=== PATIENT | female | born 1995 | race Caucasian/White ===

== ENCOUNTER 2019-10-07 09:39 | Emergency (ER) | payer BC, SELFPAY ==
[2019-06-13 08:18] VITALS: BMI 25.7
[2019-10-07 09:40] VITALS: BP 128/73; PULSE 63; RESP 17; TEMP 36.6; O2SAT 100; BMI 24.5
--- NOTE | 2019-10-07 10:03 | CT_ITS ---
STUDY: CT ABDOMEN AND PELVIS WITH CONTRAST REASON FOR EXAM: Female, 24 years old. N/V/D, UPPER ABD PAIN X 7 DAYS RADIATION DOSAGE (If Supplied By Facility): CTDIvol = ( 9.97 ) mGy, DLP = ( 383.35 ) mGycm TECHNIQUE: Transaxial images were obtained from the dome of the diaphragm to the symphysis pubis without oral contrast. IV 100ML ISOVUE 300 was administered. Sagittal and coronal images were reconstructed. Individualized dose optimization techniques were used for this CT. COMPARISON: None. FINDINGS: The visualized lung bases are unremarkable. The visualized portions of the heart are within normal limits. Findings suggestive of periportal edema of the liver. Correlation with liver function tests is recommended. Possible hepatitis. Normal gallbladder and extrahepatic biliary system. Normal spleen. Normal pancreas. Normal bilateral adrenal glands. Normal right kidney. Normal left kidney. There is a small hiatal hernia. Normal small intestine. Normal colon. The appendix is visualized and appears normal. Normal abdominal aorta. Normal inferior vena cava. Normal retroperitoneum. Normal urinary bladder. Small follicles are seen in the right ovary. Normal abdominal wall. Normal osseous structures. CT/Abdomen/Pelvis W IV Cont ONLY IMPRESSION: Findings suggestive of periportal edema of the liver. Correlation with liver function tests recommended. Electronically Signed: Curtis Oh, at 11:15 EDT , Service support ,
[2019-10-07] MEDS: 0.9% Normal Saline 1,000 ML 1000 ML IV (10:08)
[2019-10-07] MEDS: Morphine 4 MG/ML Syringe IV (10:08)
[2019-10-07] MEDS: Ondansetron 4 MG/2 ML Vial IV (10:09)
[2019-10-07 10:12] LABS: Absolute Neutrophil Count 4.9 X10^3/uL (2.0-7.7); Basophil# 0.01 X10^3/uL; Basophil% 0.2 % (0-1); Hematocrit 44.4 % (37-47); Lymphocyte % 17.8 % (19-41); Mean Corp Hgb Conc 33.8 g/dL (32-36); Mean Corpuscular Hgb 31.2 pg (27.0-32.0); Mean Corpuscular Volume 92.3 fL (81-99); Mean Platelet Vol. 10.8 fl (6.2-12.0); Monocyte# 0.21 X10^3/uL; Monocyte% 3.4 % (0-10); NRBC Flagged by Analyzer 0 % (0-5); Neutrophil # 4.85 X10^3/uL (2.7-7.7); Neutrophil % 78.3 % (47-70); Platelet Count 216 K/mm3 (150-450); RBC Distribution Width SD 40.2 fl (35.1-43.9); Red Blood Count 4.81 M/mm3 (4.2-5.4); White Blood Count 6.2 K/mm3 (4.4-11.0)
[2019-10-07 10:28] LABS: Internal QC Validated? YES +Cl - CLEAR BKGD; Pregnancy, Serum, hCG Quali. NEGATIVE Negative
[2019-10-07 10:29] LABS: ALB/GLOB Ratio 1.1 RATIO (0.9-2.4); AST(SGOT) 22 U/L (15-37); Alanine Aminotransfer ALT/SGPT 32 U/L (13-56); Albumin, Serum 4.3 g/dL (3.2-5.0); Alkaline Phosphatase 61 U/L (45-117); Anion Gap 9 (5-15); BUN 18 mg/dL (7-18); BUN/Creat Ratio 15.1 RATIO (10-20); Calcium,Total 9.7 mg/dL (8.5-10.1); Chloride 107 mmol/L (98-107); Creatinine, Serum 1.19 mg/dL (0.55-1.02); EST Glomerular Filtration Rate 60 mL/min (>60); Est Glom Filt Rate - Afr Amer 72 mL/min (>60); Estimated Creatinine Clearance 60.82 ml/min; Globulin 3.8 g/dL (2.2-4.2); Glucose 102 mg/dL (74-106); Lipase 74 U/L (73-393); Protein, Total 8.1 g/dL (6.4-8.2); Sodium Level 141 mmol/L (136-145)
--- NOTE | 2019-10-07 10:33 | ED.DCSUM_ITS ---
- ER Visit Summary Date of Service: 10/07/19 Chief Complaint: Abdominal pain History of Present Illness: The patient is a 24 F presenting with abdominal pain. Patient states this started on Saturday. She has epigastric abdominal pain. She has had vomiting today. Denies diarrhea. Denies blood in her stool or emesis. Denies fever. She tried Prilosec at home with no improvement. Denies other complaints. Physical Examination: Vitals are stable. Patient is afebrile. Alert no acute distress. HEENT exam is unremarkable. Neck is supple. Lungs are clear and equal bilaterally. Heart is regular rate and rhythm. Abdomen is soft epigastric tenderness with no guarding or rebound Extremities are unremarkable. Skin is warm and dry. Remainder of exam is unremarkable. Emergency Department Course and Treatment: Patient was given morphine, Zofran IV. CBC, chemistries unremarkable other than potassium 3.0, creatinine 1.19. Total bili 1.1. Lipase normal. hCG negative. She was given potassium oral replacement. CT abdomen pelvis shows findings suggestive of periportal edema of the liver. Correlation with liver function tests recommended. Liver function normal other than total bili 1.1. Hepatitis panel was sent. Patient was given a GI cocktail with improvement of her symptoms. She was given prescription for Pepcid and Zofran. Advised to follow-up with her primary care physician. Advised return to ED for worsening complaints. Disposition: Discharge home Impression: Abdominal pain This note was generated with [employer] dictation software. It may contain incorrect words, spelling, and punctuation that were not noted in review of the chart prior to signing ED Disposition - Plan for ED Patient: Instructions: ED Abdominal Pain Unkn Cause Fem Prescriptions: Famotidine [Pepcid] 20 mg PO BID #28 tab Prescription Printed Ondansetron [Zofran Odt] 4 mg PO Q8H PRN PRN #10 tab PRN Reason: Nausea Prescription Printed Referrals: Nino Feliz MD [NON-STAFF] - [facility] Doctor,Out of [Primary Care Provider] -
[2019-10-07] MEDS: Mag Hydrox/Al Hydrox/Simeth 30 ML UDC PO (11:47)
[2019-10-07 11:48] VITALS: BP 129/92; PULSE 51; RESP 16; O2SAT 100
--- NOTE | 2019-10-07 12:05 | DCINST.ED_ITS ---
ED Disposition - Plan for ED Patient: Instructions: ED Abdominal Pain Unkn Cause Fem Prescriptions: Famotidine [Pepcid] 20 mg PO BID #28 tablet Ondansetron [Zofran Odt] 4 mg PO Q8H PRN PRN #10 tablet PRN Reason: Nausea Referrals: [facility] Doctor,Out of [Primary Care Provider] - Nino Feliz MD [NON-STAFF] -
[2019-10-07 12:28] VITALS: BP 132/66; PULSE 61; RESP 16; O2SAT 99
[2019-10-08 05:06] LABS: HEPATITIS B SURFACE AG Negative (Negative); Hepatitis A IgM Antibody Negative (Negative); Hepatitis B Core AB IgM Negative (Negative)
[2019-10-08 11:27] LABS: Hep C Antibodies <0.1 s/co ratio (0.0-0.9)
== END 2019-10-07 12:30 | disposition home or self-care (01) ==
LOC: ED 12:22
PROVIDERS: Emergency Provider Emergency Medicine
DX: R10.13 Epigastric pain (principal); R11.2 Nausea with vomiting, unspecified
CPT/HCPCS: 74177; 80053; 80074; 83690; 84703; 85025; 96361; 96374; 96375; 99284; J7030; Q9967; A4216; J2405

== ENCOUNTER 2021-07-04 09:22 | Outpatient (CLI) | payer OTHER, SELFPAY ==
[2021-07-03 12:03] LABS: Amphetamine Urine VISTA NEGATIVE (<1000 ng/mL); Barbiturate Urine VISTA NEGATIVE (< 200 ng/mL); Benzodiazepine Urine VISTA NEGATIVE (< 200 ng/mL); Cocaine Urine VISTA NEGATIVE (< 300 ng/mL); Ecstacy Urine VISTA NEGATIVE (< 500 ng/mL); Methadone Urine VISTA NEGATIVE (< 300 ng/mL); PCP Urine VISTA NEGATIVE (< 25 ng/mL); THC Urine VISTA POSITIVE (< 50 ng/mL)
[2021-07-03 14:18] LABS: Vista UDS pH Range 8
[2021-07-04 22:07] LABS: Chlamydia By Nucleic Acid AMP Negative (Negative)
[2021-07-05 10:21] LABS: Gonococcus By Nucleic Acid AMP Negative (Negative)
[2021-07-07 17:15] LABS: HPV Reflexed? NOT INDICATED
== END 2021-07-04 23:59 | disposition home or self-care (01) ==
LOC: LABSPEC 09:24
PROVIDERS: PCP Family Medicine; Referring Provider Obstetrics & Gynecology; Visit Provider Obstetrics & Gynecology
DX: Z34.90 Encounter for supervision of normal pregnancy, unspecified, unspecified trimester (principal)
CPT/HCPCS: 80307; 87086; 87088; 87491; 87591; 88175; G0145

== ENCOUNTER 2021-08-04 14:14 | Outpatient (CLI) | payer OTHER, SELFPAY ==
[2021-08-04 15:22] LABS: Absolute Lymphocyte Count 3.32 X10^3/uL (0.83-4.51); Absolute Neutrophil Count 5.3 X10^3/uL (2.0-7.7); Basophil# 0.02 X10^3/uL; Basophil% 0.2 % (0-1); Eosinophil# 0.17 X10^3/uL; Eosinophils% 1.8 % (0-5); Hematocrit 40.9 % (37-47); Hemoglobin 14.9 g/dL (12.0-15.0); Lymphocyte # 3.32 X10^3/ul (0.83-4.51); Lymphocyte % 35.5 % (19-41); Mean Corp Hgb Conc 36.4 g/dL (32-36); Mean Corpuscular Hgb 32.3 pg (27.0-32.0); Mean Corpuscular Volume 88.5 fL (81-99); Mean Platelet Vol. 10.7 fl (6.2-12.0); Monocyte# 0.56 X10^3/uL; NRBC Flagged by Analyzer 0 % (0-5); Neutrophil # 5.25 X10^3/uL (2.7-7.7); Neutrophil % 56.3 % (47-70); Platelet Count 207 K/mm3 (150-450); RBC Distribution Width CV 12.1 % (11.6-14.6); Red Blood Count 4.62 M/mm3 (4.2-5.4); White Blood Count 9.3 K/mm3 (4.4-11.0)
[2021-08-07 09:30] LABS: HIV - WCH Non-Reactive (Nonreactive); Hepatitis B Surface Antigen Non-Reactive (Nonreactive); Hepatitis C Antibody Non-Reactive (Nonreactive); Rubella IgG Reactive (Nonreactive); Syphilis Antibodies Non-reactive
== END 2021-08-04 23:59 | disposition home or self-care (01) ==
LOC: LAB 14:16
PROVIDERS: PCP Family Medicine; Visit Provider Obstetrics & Gynecology
DX: Z34.90 Encounter for supervision of normal pregnancy, unspecified, unspecified trimester (principal)
CPT/HCPCS: 36415; 85025; 86703; 86762; 86780; 86803; 86850; 86900; 86901; 87340

== ENCOUNTER → 2021-08-30 | Outpatient (CLI) | payer OTHER, SELFPAY ==
[2021-08-30 17:33] LABS: Amphetamine Urine VISTA NEGATIVE (<1000 ng/mL); Barbiturate Urine VISTA NEGATIVE (< 200 ng/mL); Benzodiazepine Urine VISTA NEGATIVE (< 200 ng/mL); Cocaine Urine VISTA NEGATIVE (< 300 ng/mL); Ecstacy Urine VISTA NEGATIVE (< 500 ng/mL); Methadone Urine VISTA NEGATIVE (< 300 ng/mL); PCP Urine VISTA NEGATIVE (< 25 ng/mL); THC Urine VISTA POSITIVE (< 50 ng/mL); Vista UDS pH Range 6
== END | disposition home or self-care (01) ==
PROVIDERS: PCP Family Medicine; Referring Provider Nurse Practitioner Women's Health; Visit Provider Nurse Practitioner Women's Health
DX: O99.321 Drug use complicating pregnancy, first trimester (principal); F12.90 Cannabis use, unspecified, uncomplicated; Z3A.10 10 weeks gestation of pregnancy
CPT/HCPCS: 80307

== ENCOUNTER → 2021-12-01 | Outpatient (CLI) | payer OTHER, SELFPAY ==
[2021-12-01 17:41] LABS: Glucose Challenge Gest 1H 50g 99 mg/dL (70-140)
[2021-12-01 17:55] LABS: Absolute Lymphocyte Count 3.27 X10^3/uL (0.83-4.51); Basophil# 0.04 X10^3/uL; Basophil% 0.3 % (0-1); Eosinophil# 0.28 X10^3/uL; Eosinophils% 2.1 % (0-5); Hematocrit 39.2 % (37-47); Lymphocyte # 3.27 X10^3/ul (0.83-4.51); Lymphocyte % 24.5 % (19-41); Mean Corp Hgb Conc 33.2 g/dL (32-36); Mean Corpuscular Hgb 32.3 pg (27.0-32.0); Mean Corpuscular Volume 97.3 fL (81-99); Mean Platelet Vol. 10.4 fl (6.2-12.0); Monocyte# 0.64 X10^3/uL; Monocyte% 4.8 % (0-10); NRBC Flagged by Analyzer 0 % (0-5); Neutrophil # 8.95 X10^3/uL (2.7-7.7); Platelet Count 233 K/mm3 (150-450); RBC Distribution Width CV 12.1 % (11.6-14.6); Red Blood Count 4.03 M/mm3 (4.2-5.4); White Blood Count 13.4 K/mm3 (4.4-11.0)
== END | disposition home or self-care (01) ==
LOC: LAB 15:47
PROVIDERS: Obstetrics & Gynecology; PCP Family Medicine; Visit Provider Obstetrics & Gynecology
DX: Z34.90 Encounter for supervision of normal pregnancy, unspecified, unspecified trimester (principal)
CPT/HCPCS: 36415; 82950; 85025

== ENCOUNTER → 2021-12-29 | Outpatient (CLI) | payer OTHER, SELFPAY ==
--- NOTE | 2021-12-29 13:17 | US_ITS ---
STUDY: SECOND AND THIRD TRIMESTER OBSTETRICAL ULTRASOUND REASON FOR EXAM: Female, 26 years old GROWTH LMP: 05/21/2021. TECHNIQUE: Transabdominal TECHNICAL QUALITY: Adequate. PRIOR ULTRASOUND: None. FINDINGS: There is a single intrauterine fetus. The fetus is in a cephalic presentation. There is demonstrated cardiac activity with a heart rate of 123 bpm. There is a normal amniotic fluid volume. The largest amniotic fluid pocket measures 4.3 cm. The amniotic fluid index (DEBI) is 11.8 cm. The placenta is anterior in location and is not low lying. There are Grade 1 placental changes. The cervix measures 3.2 cm in length. The adnexal regions are not visualized. BIOMETRY: BPD: 8.15 cm: 32 weeks, 5 days HC: 29.2 cm: 32 weeks, 2 days AC: 27.8 cm: 31 weeks, 6 days FL: 5.9 cm: 30 weeks, 4 days CI: 81% FL/BPD: 72% FL/HC: FL/AC: 21% HC/AC: 1.05 age by current US: 31 weeks, 5 days. EDMUNDO by current US: 02/25/2022. Estimated weight: 1828 grams, +/- 274 grams, 39 %. Age by LMP: 31 weeks, 5 days. EDMUNDO by LMP: 02/25/2022. US/OB Limited With Biometrics IMPRESSION: Single live uterine gestation with a mean gestational age of 31 weeks and 5 days. Electronically Signed: Curtis Oh MD at 14:07 EDT ,
== END | disposition home or self-care (01) ==
LOC: OPUS 13:16
PROVIDERS: PCP Family Medicine; Referring Provider Obstetrics & Gynecology; Visit Provider Obstetrics & Gynecology
DX: O98.52 Other viral diseases complicating childbirth (principal); U07.1 COVID-19
CPT/HCPCS: 76816

== ENCOUNTER → 2022-01-26 | Outpatient (CLI) | payer OTHER, SELFPAY ==
--- NOTE | 2022-01-26 14:18 | US_ITS ---
STUDY: SECOND AND THIRD TRIMESTER OBSTETRICAL ULTRASOUND REASON FOR EXAM: Female, 26 years old growth LMP: 05/21/2021. TECHNIQUE: Transabdominal TECHNICAL QUALITY: Adequate. PRIOR ULTRASOUND: Comparison is made with prior study 12/29/2021. FINDINGS: There is a single intrauterine fetus. The fetus is in a cephalic presentation. There is demonstrated cardiac activity with a heart rate of 131 bpm. There is a normal amniotic fluid volume. The largest amniotic fluid pocket measures 5.3 cm. The amniotic fluid index (DEBI) is 11.7 cm. The placenta is anterior in location and is not low lying. There are Grade 1 placental changes. The cervix measures 3.6 cm in length. The adnexal regions are not visualized. BIOMETRY: BPD: 8.82 cm: 35 weeks, 5 days HC: 32.03 cm: 36 weeks, 1 days AC: 32.77 cm: 36 weeks, 5 days FL: 6.7 cm: 30 weeks, 3 days CI: 80% FL/BPD: FL/HC: FL/AC: 20% HC/AC: 0.98 age by current US: 35 weeks, 4 days. EDMUNDO by current US: 02/26/2022. Estimated weight: 2834 grams, +/- 425 grams, 59 %. age by prior US: 35 weeks, 5 days. EDMUNDO by prior US: 02/25/2022. Age by LMP: 35 weeks, 4 days. EDMUNDO by LMP: 02/26/2022. US/OB Limited With Biometrics IMPRESSION: Single live uterine gestation with mean gestational age of 35 weeks and 5 days. Electronically Signed: Curtis Oh MD at 15:30 EDT ,
== END | disposition home or self-care (01) ==
LOC: OPUS 14:17
PROVIDERS: PCP Family Medicine; Visit Provider Obstetrics & Gynecology
DX: O98.52 Other viral diseases complicating childbirth (principal); U07.1 COVID-19; Z3A.00 Weeks of gestation of pregnancy not specified
CPT/HCPCS: 76816

== ENCOUNTER → 2022-02-02 | Outpatient (CLI) | payer OTHER, SELFPAY | END | disposition home or self-care (01) | LOC: LABSPEC 16:58 | PROVIDERS: PCP Family Medicine; Visit Provider Obstetrics & Gynecology | DX: Z34.90 Encounter for supervision of normal pregnancy, unspecified, unspecified trimester (principal) | CPT/HCPCS: 87081 ==

== ENCOUNTER → 2022-02-08 | Outpatient (CLI) | payer OTHER, SELFPAY ==
[2022-02-08 14:41] LABS: Protein, Urine (Random) 18.1 mg/dL (<11.9); Protein:Creat Ratio 153 mg/g CRE (0-200)
== END | disposition home or self-care (01) ==
LOC: LABSPEC 13:42
PROVIDERS: PCP Family Medicine; Visit Provider Obstetrics & Gynecology
DX: O12.00 Gestational edema, unspecified trimester (principal)
CPT/HCPCS: 82570; 84156

== ENCOUNTER 2022-02-12 10:40 | Inpatient (IN) | payer OTHER, SELFPAY ==
[2022-02-12] VITALS (32 sets, daily range): BP systolic 112–145; BP diastolic 58–88; PULSE 62–210; TEMP 36.2–37.6; O2SAT 84–100; BMI 39.9
[2022-02-12] MEDS: Lactated Ringers 1,000 ML 50 ML IV (10:15)
[2022-02-12 10:37] LABS: ROM Internal Control Test YES-OK TO RESULT pt. (Internal QC)
[2022-02-12 10:38] LABS: ROM Patient Test POSITIVE (Negative)
[2022-02-12 12:23] LABS: Absolute Lymphocyte Count 3.63 X10^3/uL (0.83-4.51); Absolute Neutrophil Count 9.7 X10^3/uL (2.0-7.7); Basophil# 0.03 X10^3/uL; Basophil% 0.2 % (0-1); Eosinophil# 0.06 X10^3/uL; Eosinophils% 0.4 % (0-5); Lymphocyte # 3.63 X10^3/ul (0.83-4.51); Lymphocyte % 25.2 % (19-41); Mean Corp Hgb Conc 32.4 g/dL (32-36); Mean Corpuscular Hgb 30.2 pg (27.0-32.0); Mean Corpuscular Volume 93.2 fL (81-99); Mean Platelet Vol. 11.6 fl (6.2-12.0); Monocyte# 0.88 X10^3/uL; Monocyte% 6.1 % (0-10); NRBC Flagged by Analyzer 0 % (0-5); Neutrophil # 9.65 X10^3/uL (2.7-7.7); Neutrophil % 66.9 % (47-70); POSITIVE COUNT YES; Platelet Count 189 K/mm3 (150-450); RBC Distribution Width CV 11.9 % (11.6-14.6); Red Blood Count 3.97 M/mm3 (4.2-5.4); White Blood Count 14.4 K/mm3 (4.4-11.0)
[2022-02-12 13:16] LABS: Differential Indicated SCAN CRITERIA MET
[2022-02-12 13:17] LABS: Platelet Estimate ADEQUATE (ADEQ); Red Cell Morphology NORM C+C NORMAL (NORM C&C)
[2022-02-12] MEDS: Oxytocin 30 units/NS 500 ml 30 UNITS/500 ML IV.SOLN IV (13:47)
[2022-02-12] MEDS: LACTATED RINGERS 500 ML 999 ML IV ×2 (15:40→23:29)
[2022-02-12] MEDS: fentaNYL-bupivacaine (epidural) 100 ML BAG EPIDURAL ×2 (16:09→19:55)
[2022-02-12] MEDS: Mag Hydrox/Al Hydrox/Simeth 30 ML UDC PO ×2 (17:00→22:34)
[2022-02-12] MEDS: Lactated Ringers 1,000 ML 200 ML IV (19:54)
[2022-02-12] MEDS: Ondansetron 4 MG/2 ML Vial IV (20:20)
[2022-02-12] MEDS: 0.9% Saline Lock 10 ML Syringe IV (20:20)
--- NOTE | 2022-02-12 21:27 | HP.PCM.OB_ITS ---
HPI - General General Date of Admission: 02/12/22 HPI Narrative IZZY JACOBSON, is a 26 F who presents IAL with ctx and SROM clear fluid, 3 cm dilated no vb good fm Maternal Data Information EDMUNDO Calculator Estimated Delivery Date Method Current WG Current Estimate 02/25/22 Ultrasound #1 38w 1d Other Estimates 02/11/22 LMP (Certain) 40w 1d PFSH PFSH Medical History Chronic neck and back pain Depression Family history of breast cancer Headache History of seizures Marijuana use Home Medications prenat.vits,levar,igu-rgps-roxdl 1 tab PO DAILY 12/29/21 [History Last Taken Unknown] acetaminophen 80 mg chewable tablet 81 mg PO DAILY 02/08/22 [History Last Taken Unknown] Allergy/AdvReac Type Severity Reaction Status Date / Time No Known Allergies Allergy Verified 02/02/22 16:07 Family History Mother Breast cancer, Onset Age: 45 Grandmother Breast cancer Surgical History Robinson teeth extracted Social History Smoking Status: Never smoker alcohol intake: never caffeine: Yes seatbelt use: always do you feel safe at home: Yes additional social history: Keypr [place] Duffy History 1 Elective abortions Hx Para 0 Spontaneous abortions Hx # Term Pregnancies Ectopic pregnancies Hx # Pregnancies Multiple births # of living children Visit Details Expected Delivery Route/Plan Labor Preferences- CB/BF classes: discussed labor support person: Chemo labor intervention preferences: [] pain management options preferred: [] cut cord/dad catch: [] : [] PP control planned: [] discussed possible routes of delivery and associated risks: [] special requests: [] Plans Covid status: vaccinated Flu vaccine: encouraged Tdap vaccine: given Rhogam: na LARC form signed: [] movement and labor precautions reviewed. Problem list reviewed and updated with the most current plan of care details and appropriate orders placed. Relevant counseling for the gestational age provided. Continue routine care and follow up unless otherwise noted in visit notes/problem list details OB Flowsheet Initial Weight: 164 lb Date -?-?-?-?-?-?-?-?-?-?-?-?- EGA Weight BP Urine Prot -?-?-?-?-?-?-?-?-?-?-?-?- Glucose FHR FuHt Pres Dilation -?-?-?-?-?-?-?-?-?-?-?-?- Effaced St Visit Note 07/03/21 -?-?-?-?-?-?-?-?-?-?-?-?- 6w 1d 164 lb (+0 oz) 102/70 -?-?-?-?-?-?-?-?-?-?-?-?- 120 -?-?-?-?-?-?-?-?-?-?-?-?- SM- CRL 6mm NOT cons with LMP 08/04/21 -?-?-?-?-?-?-?-?-?-?-?-?- 10w 5d 156 lb 4 oz (-7 lb 12 oz) 110/70 Negative -?-?-?-?-?-?-?-?-?-?-?-?- Negative 160 -?-?-?-?-?-?-?-?-?-?-?-?- Sm-no vb some cr amping 08/30/21 -?-?-?-?-?-?-?-?-?-?-?-?- 14w 3d 160 lb 4 oz (-3 lb 12 oz) 124/72 Negative -?-?-?-?-?-?-?-?-?-?-?-?- Negative 157 -?-?-?-?-?-?-?-?-?-?-?-?- MH-No VB, LOF. N ormal PNL. No concerns 09/27/21 -?-?-?-?-?-?-?-?-?-?-?-?- 18w 3d 162 lb (-2 lb) 110/70 Negative -?-?-?-?-?-?-?-?-?-?-?-?- Negative 154 -?-?-?-?-?-?-?-?-?-?-?-?- JV- discussion a bout repeat labs today. no other concerns. plan for anatomy scan on with mfm . 10/25/21 -?-?-?-?-?-?-?-?-?-?-?-?- 22w 3d 170 lb 2 oz (+6 lb 2 oz) 120/80 Negative -?-?-?-?-?-?-?-?-?-?-?-?- Negative 147 -?-?-?-?-?-?-?-?-?-?-?-?- JV-normal anatom y reviewed. no complaints today. glucola given 12/01/21 -?-?-?-?-?-?-?-?-?-?-?-?- 27w 5d 186 lb (+22 lb) 114/77 Negative -?-?-?-?-?-?-?-?-?-?-?-?- Negative 140 28 -?-?-?-?-?-?-?-?-?-?-?-?- Sm- no vb lof go od fm no regualr ctx . discussed weight gain 12/13/21 -?-?-?-?-?-?-?-?-?-?-?-?- 29w 3d 190 lb (+26 lb) 116/73 Negative -?-?-?-?-?-?-?-?-?-?-?-?- Negative 145 30 -?-?-?-?-?-?-?-?-?-?-?-?- JV- pt has a yea st infectio that is moderate to severe. she is doing otc monistat. edematous is severe enough that the speculum will not easily insert with lubrication and the discharge is copious. starting diflucan and encourage continuation of monistat with internal and external application. 12/29/21 -?-?-?-?-?-?-?-?-?-?-?-?- 31w 5d 196 lb (+32 lb) 136/78 Negative -?-?-?-?-?-?-?-?-?-?-?-?- Negative 140 32 -?-?-?-?-?--?-?-?-?-?-?-?- SM- no vb lof go od fm no rergular ctx 01/10/22 -?-?-?-?-?-?-?-?-?-?-?-?- 33w 3d 199 lb 6 oz (+35 lb 6 oz) 132/78 Negative -?-?-?-?-?-?-?-?-?-?-?-?- Negative 134 33 -?-?-?-?-?-?-?-?-?-?-?-?- JV- no lof ,vagi nal bleeding, or dec fm. no complaints today 01/26/22 -?-?-?-?-?-?-?-?-?-?-?-?- 35w 5d 199 lb (+35 lb) 120/80 -?-?-?-?-?-?-?-?-?-?-?-?- 135 36 -?-?-?-?-?-?-?-?-?-?-?-?- SM-no vb lof goo d fm irregular ctx 02/02/22 -?-?-?-?-?-?-?-?-?-?-?-?- 36w 5d 128/82 Negative -?-?-?-?-?-?-?-?-?-?-?-?- Negative 145 36 Cephalic 0 -?-?-?-?-?-?-?-?-?-?-?-?- JV- no lof, vagi nal bleeding or dec fm. gbs collected .labor precautions discussed. 02/09/22 -?-?-?-?-?-?-?-?-?-?-?-?- 37w 5d 217 lb (+53 lb) 132/83 -?-?-?-?-?-?-?-?-?-?-?-?- 135 38 1.5 -?-?-?-?-?-?-?-?-?-?-?-?- 50 -2 SM- no vb lof good fm no regular ctx 02/12/22 -?-?-?-?-?-?-?-?-?-?-?-?- 38w 1d 218 lb 6 oz (+54 lb 6 oz) 145/84 137/81 139/79 134/75 122/66 118/59 137/88 135/81 139/81 129/75 122/58 119/59 126/63 130/58 134/63 126/62 116/67 119/69 122/67 120/62 -?-?-?-?-?-?-?-?-?-?-?-?- -?-?-?-?-?-?-?-?-?-?-?-?- NST FHR Rate Baby A Baseline: 130 Variability:: Moderate Accelerations:: 15 x 15 Decelerations:: None NST Reactive:: Yes FHR Category:: Category I Uterine Activity:: q3-5 ROS Constitutional Constitutional: Reports systems reviewed and no addt'l complaints, except as documented ENT HEENT: Reports systems reviewed and no addt'l complaints, except as documented Cardiovascular Cardiovascular: Reports systems reviewed and no addt'l complaints, except as documented Respiratory/Chest Respiratory/Chest: Reports systems reviewed and no addt'l complaints, except as documented Gastrointestinal Gastrointestinal: Reports systems reviewed and no addt'l complaints, except as documented and nausea; Denies abdominal pain Genitourinary Genitourinary: Reports systems reviewed and no addt'l complaints, except as documented, contractions Details: present and frequency (regular ) and movement Details: present Musculoskeletal Musculoskeletal: Reports systems reviewed and no addt'l complaints, except as documented Integumentary Integumentary: Reports as per HPI Neurologic Neurologic: Reports systems reviewed and no addt'l complaints, except as documented Endocrine Endocrinology: Reports systems reviewed and no addt'l complaints, except as documented Vital Signs Vital Signs Vital Signs: 02/12/22 09:58 02/12/22 09:58 02/12/22 09:59 Temperature 99.7 F H Temperature Source Pulse Rate 80 Blood Pressure BP Systolic BP Diastolic Pulse Ox 100 02/12/22 10:01 02/12/22 10:01 02/12/22 10:15 Temperature Temperature Source Pulse Rate 91 Blood Pressure 145/84 H 137/81 H BP Systolic 145 137 BP Diastolic 84 81 Pulse Ox 02/12/22 10:15 02/12/22 10:25 02/12/22 10:25 Temperature Temperature Source Pulse Rate 78 90 Blood Pressure 139/79 H BP Systolic 139 BP Diastolic 79 Pulse Ox 02/12/22 12:56 02/12/22 12:56 02/12/22 12:56 Temperature 98.1 F Temperature Source Pulse Rate 73 Blood Pressure 134/75 H BP Systolic 134 BP Diastolic 75 Pulse Ox 02/12/22 12:56 02/12/22 12:56 02/12/22 13:55 Temperature 98.1 F Temperature Source Temporal Pulse Rate Blood Pressure 122/66 H BP Systolic 122 BP Diastolic 66 Pulse Ox 02/12/22 13:55 02/12/22 14:20 02/12/22 14:20 Temperature Temperature Source Pulse Rate 68 80 Blood Pressure 118/59 L BP Systolic 118 BP Diastolic 59 Pulse Ox 02/12/22 15:50 02/12/22 15:50 02/12/22 15:50 Temperature Temperature Source Pulse Rate 161 H Blood Pressure 137/88 H BP Systolic 137 BP Diastolic 88 Pulse Ox 92 02/12/22 15:55 02/12/22 15:55 02/12/22 15:55 Temperature Temperature Source Pulse Rate 111 H Blood Pressure 135/81 H BP Systolic 135 BP Diastolic 81 Pulse Ox 100 02/12/22 15:58 02/12/22 15:58 02/12/22 16:00 Temperature Temperature Source Pulse Rate 92 Blood Pressure 139/81 H 129/75 H BP Systolic 139 129 BP Diastolic 81 75 Pulse Ox 02/12/22 16:00 02/12/22 16:00 02/12/22 16:00 Temperature Temperature Source Pulse Rate 91 89 Blood Pressure BP Systolic BP Diastolic Pulse Ox 87 02/12/22 16:01 02/12/22 16:01 02/12/22 16:05 Temperature Temperature Source Pulse Rate 85 Blood Pressure 122/58 H BP Systolic 122 BP Diastolic 58 Pulse Ox 92 02/12/22 16:05 02/12/22 16:05 02/12/22 16:10 Temperature Temperature Source Pulse Rate 79 Blood Pressure 119/59 L BP Systolic 119 BP Diastolic 59 Pulse Ox 100 02/12/22 16:10 02/12/22 16:10 02/12/22 16:15 Temperature Temperature Source Pulse Rate 83 Blood Pressure 126/63 H BP Systolic 126 BP Diastolic 63 Pulse Ox 100 02/12/22 16:15 02/12/22 16:15 02/12/22 16:21 Temperature Temperature Source Pulse Rate 82 Blood Pressure 130/58 H BP Systolic 130 BP Diastolic 58 Pulse Ox 100 02/12/22 16:21 02/12/22 16:20 02/12/22 16:29 Temperature Temperature Source Pulse Rate 80 Blood Pressure 134/63 H BP Systolic 134 BP Diastolic 63 Pulse Ox 100 02/12/22 16:29 02/12/22 16:29 02/12/22 17:15 Temperature Temperature Source Pulse Rate 69 Blood Pressure 126/62 H BP Systolic 126 BP Diastolic 62 Pulse Ox 100 02/12/22 17:15 02/12/22 17:51 02/12/22 17:51 Temperature Temperature Source Pulse Rate 74 69 Blood Pressure 116/67 BP Systolic 116 BP Diastolic 67 Pulse Ox 02/12/22 17:56 02/12/22 19:05 02/12/22 19:01 Temperature 97.2 F L 98.2 F Temperature Source Temporal Pulse Rate Blood Pressure BP Systolic BP Diastolic Pulse Ox 02/12/22 19:07 02/12/22 19:07 02/12/22 19:06 Temperature Temperature Source Pulse Rate 66 Blood Pressure 119/69 BP Systolic 119 BP Diastolic 69 Pulse Ox 100 02/12/22 19:01 02/12/22 19:49 02/12/22 19:49 Temperature 98.2 F Temperature Source Pulse Rate 62 Blood Pressure 122/67 H BP Systolic 122 BP Diastolic 67 Pulse Ox 02/12/22 19:49 02/12/22 19:49 02/12/22 19:49 Temperature 97.9 F Temperature Source Temporal Pulse Rate Blood Pressure BP Systolic BP Diastolic Pulse Ox 100 02/12/22 19:49 02/12/22 21:23 02/12/22 21:23 Temperature Temperature Source Pulse Rate 67 Blood Pressure 120/62 BP Systolic 120 BP Diastolic 62 Pulse Ox 100 02/12/22 21:23 02/12/22 21:23 02/12/22 21:23 Temperature 98.1 F Temperature Source Temporal Pulse Rate 66 Blood Pressure BP Systolic BP Diastolic Pulse Ox 02/12/22 21:23 Temperature Temperature Source Pulse Rate Blood Pressure BP Systolic BP Diastolic Pulse Ox 100 Weight Weight: 218 lb 6 oz Body Mass Index (BMI) 39.9 Physical Exam Const alert, oriented x3 and healthy appearing Constitutional Narrative: uncomfortable with contractions HEENT normocephalic and moist oral mucous membranes Head and Scalp: atraumatic Neck full ROM, no lymphadenopathy, supple and thyroid normal General: trachea midline Thyroid: thyroid normal Lymph Lymphatic: no lymphadenopathy noted Chest inspection of chest normal Resp normal respiratory effort Cardio regular rate GI normal to inspection, nondistended, normoactive bowel sounds, soft to palpation and non-tender Inspection: gravid external exam normal Bimanual Exam - Vag & Uterus: uterus non-tender Manual OB Exam: estimated gestational size appropriate, presentation cephalic, dilated, effaced and station Extremity normal to inspection General Extremity: Negative for edema Skin no rashes or lesions noted Neuro deep tendon reflexes 2+ bilaterally Motor Exam: strength 5/5 throughout and clonus absent Psych mental status grossly normal Labs Labs Labs: Blood Type B POSITIVE Antibody Screen NEGATIVE Hct 37.0 % (37-47) Hgb 12.0 g/dL (12.0-15.0) Pap Smear Negative Obstetrics US Syphilis Total Ab Non-reactive Rubella IgG Antibody Reactive (Nonreactive) Hep Bs Antigen Non-Reactive (Nonreactive) Chlamydia DNA ([facility]) Negative (Negative) Neisseria gonorrhoeae DNA ([facility]) Negative (Negative) HIV 1&2 Antibody Non-Reactive (Nonreactive) Glucose 1 Hr 50 gm 99 mg/dL (70-140) Assessment & Plan (1) Supervision of normal : QUALIFIERS: Normal : normal first Trimester: second trimester Qualified Code(s): Z34.02 - Encounter for supervision of normal first , second trimester COMMENT: PRR EDMUNDO 02/25/22 boy Chemo Chemo. Previous OB records have EDMUNDO as 02/12/22 (2) : QUALIFIERS: Weeks of gestation: 37 weeks Qualified Code(s): Z3A.37 - 37 weeks gestation of COMMENT: GBS neg. FU US less free fluid, declined genetic carrier and ntd screening. nl anatomy (3) Marijuana use: COMMENT: random tox screens: Positive NOB. 08/30/21 (4) COVID-19 affecting childbirth: COMMENT: Growth US at 32 & 36 weeks, 12/29 nl growth, 01/26 NL (5) SROM (spontaneous rupture of membranes): PLAN: Plan Patient presents IAL, plan expectant management for , pitocin if needed. Pain management: plans epidural. GBS neg. Management of any complications: none I have reviewed the [facility] and made any clinically relevant updates.
[2022-02-13] VITALS (45 sets, daily range): BP systolic 107–129; BP diastolic 55–73; PULSE 61–97; RESP 16–18; TEMP 36.8–37.9; O2SAT 97–100
[2022-02-13] MEDS: fentaNYL-bupivacaine (epidural) 100 ML BAG EPIDURAL (00:42)
[2022-02-13] MEDS: Lactated Ringers 1,000 ML 200 ML IV (00:42)
[2022-02-13] MEDS: Oxytocin 30 units/NS 500 ml 30 UNITS/500 ML IV.SOLN 334 UNITS IV (03:09)
--- NOTE | 2022-02-13 03:23 | EX.PCM.OBRPT ---
Assessment & Plan (1) SROM (spontaneous rupture of membranes): (2) COVID-19 affecting childbirth: COMMENT: Growth US at 32 & 36 weeks, 12/29 nl growth, 01/26 NL (3) Marijuana use: COMMENT: random tox screens: Positive NOB. 08/30/21 (4) : QUALIFIERS: Weeks of gestation: 37 weeks Qualified Code(s): Z3A.37 - 37 weeks gestation of COMMENT: GBS neg. FU US less free fluid, declined genetic carrier and ntd screening. nl anatomy (5) Supervision of normal : QUALIFIERS: Normal : normal first Trimester: second trimester Qualified Code(s): Z34.02 - Encounter for supervision of normal first , second trimester COMMENT: PRR EDMUNDO 02/25/22 miranda Deluna Chemo. Previous OB records have EDMUNDO as 02/12/22 (6) Vaginal delivery: COMMENT: IAL SM miranda deluna Maternal Data Information EDMUNDO Calculator Estimated Delivery Date Method Current WG Current Estimate 02/25/22 Ultrasound #1 38w 2d Other Estimates 02/11/22 LMP (Certain) 40w 2d Vaginal Delivery Operative Information Date of Procedure: 02/13/22 Pre-Operative Diagnosis: IAL Post-Operative Diagnosis: same Surgery / Procedure Performed: Spontaneous Vaginal Delivery Type of Anesthesia: Epidural Special Medications: none Estimated Blood Loss: 200 Fluids Replaced: crystalloid Findings Description of Procedure: Patient began pushing and delivered the head in the SILKE presentation. The head was delivered atraumatically . The anterior and posterior shoulders delivered without complication followed by the rest of the infant and the infant was placed on the maternal abdomen. Delayed cord clamping was employed for approximately 60 seconds. Cord was clamped and cut and gentle traction was applied to the cord and the placenta delivered spontaneously immediately following it was noted to be intact with three-vessel cord. The perineum and vagina were inspected and noted to have a second degree perineal laceration repaired in the usual fashion with 3-0 rapide. EBL was 200. Patient and infant tolerated delivery well. Presentation: SILKE Amniotic Membrane Rupture Type: Spontaneous Amniotic Fluid Description: Clear Placental Delivery Description: Spontaneous Placenta Disposition: [facility] Cord Vessel Description: 3 Vessels Cord Entanglement: None A Gender: Female Delayed Cord Clamping: Yes Post Vaginal Delivery Medications Given After Delivery: IV Pitocin Episiotomy Description: None Laceration: None Complication Complications: None Procedures Urinary/Genital [id number]: [id number] Vaginal Delivery [facility]
--- NOTE | 2022-02-13 03:26 | DCINST_ITS ---
Discharge Instructions Diet Discharge Diet: No restrictions Activity Discharge Activity: Return to Normal Activity, May Drive, May Shower and May Take a Tub Bath (in 4 weeks) May resume sexual activity in: 6-8 weeks (after seen by OB provider) Weight Bearing Status: Full weight bearing Lifting Restrictions: none Dressing / Incision Call your doctor if you observe: Fever of 101 or Higher, Inability to urinate, Using more than 1 pad per hour (for more than 2 hours in a row or more), Shortness of breath, Dizziness, Chest pain and - (headache not controlled with tylenol, change in vision) Follow Up Care When: in 6 weeks for visit, call the office to make the appointment. If you had elevated blood pressures call the office to be seen within 1 week. Test Results: Test results from this visit will be discussed in further detail at your follow- up appointment, if applicable. Discharge Plan Admission Admit Date/Time: 02/12/22 10:40 Attending Provider: Norma Montoya Primary Care Provider: Nino Feliz Discharge Orders/Prescriptions Prescriptions: No Action prenat.vits,levar,[id number] Tablet 1 tab PO DAILY acetaminophen 80 mg tablet,chewable 81 mg PO DAILY Referrals / Follow Up: Nino Feliz MD [Primary Care Provider] - Disposition Disposition (needs filled in before D/C Order can be placed): Home, Self Care
[2022-02-13] MEDS: Benzocaine/Lanolin/Aloe Vera 1 SPRAY EACH TOPICAL (04:14)
[2022-02-13] MEDS: Naproxen 500 MG Tablet PO ×2 (04:14→14:30)
[2022-02-13] MEDS: 0.9% Saline Lock 10 ML Syringe IV (05:43)
[2022-02-13] MEDS: Acetaminophen 500 MG Tablet 1000 MG PO ×2 (09:00→18:13)
[2022-02-14 05:45] VITALS: BP 124/60; PULSE 72; PULSE 74; RESP 18; TEMP 36.7; O2SAT 98
[2022-02-14] MEDS: Acetaminophen 500 MG Tablet 1000 MG PO (06:28)
--- NOTE | 2022-02-14 07:16 | NURSING ---
report given to Larry Hagan RN who is assuming care of pt at this time
[2022-02-14 07:38] VITALS: BP 113/62; PULSE 72; RESP 16; TEMP 36.6; O2SAT 99
[2022-02-14 07:39] VITALS: O2SAT 97
[2022-02-14 07:40] VITALS: BP 113/62; PULSE 71
--- NOTE | 2022-02-14 08:36 | PCM.PN.OB ---
Subjective Subjective Patient doing well without complaints. Tolerating PO. Ambulating and voiding without difficulty. Feeding well. Denies chest pain, shortness of breath, calf pain/swelling, fevers, chills, lightheadedness. Objective Data Objective Data Vital Signs: Vital Signs Temp Pulse Resp BP Pulse Ox O2 Del Method 97.8 F 71 16 113/62 97 Room Air 02/14/22 07:38 02/14/22 07:40 02/14/22 07:38 02/14/22 07:40 02/14/22 07:39 02/14/22 07:38 Oxygen Delivery Method Room Air Weight: 218 lb 6 oz Body Mass Index (BMI) 39.9 Intake & Output: Intake and Output for Last 24 Hours 02/12/22 02/13/22 02/14/22 23:59 23:59 23:59 Intake Total 3359.44 / 3859.44 1876.9 / 1876.9 Output Total 600 / 600 1400 / 1400 Balance 2759.44 / 3259.44 476.9 / 476.9 Lab / Micro Data Result Diagrams: 02/12/22 11:45 Physical Exam Const alert and oriented x3 HEENT normocephalic Eyes PERRL Neck full ROM Resp normal respiratory effort GI soft to palpation GI Narrative: FF below U Assessment & Plan (1) Vaginal delivery: COMMENT: BUTCH [place] PLAN: Plan s/p PPD # 1 1. routine post delivery care 2. breast feeding- support given 3. rh positive 4. rubella immune 5. home today
[2022-02-14 11:33] VITALS: BP 128/66; PULSE 80; RESP 17; TEMP 36.7; O2SAT 99
[2022-02-14 11:38] VITALS: BP 128/66; PULSE 74; PULSE 80; O2SAT 99
--- NOTE | 2022-02-14 12:08 | CASEMGMT ---
Social Work Labor and Delivery Unit Date/Time of Referral: 02/14/22, 8:46 Referred by: Norma Montoya Date/Time of Intervention: 02/14/22 11:30am Reason for Referral: +THC and depression History Obtained from: DENIS and FOB Household composition: MOB and KAROLYN, and now baby Chemo This is the first baby for MOB and FOB. They have been together for five years. Patient's parent/guardian status: MOB and FOB are guardians of the child Medical History: MOB: depression, chronic nec and back pain, history of seizures. Baby: Born 02/[birth year], 3:06am, Apgars 9 and 9 at one and five minutes, 3070g at . Educational Status: DENIS has two associate's degrees, FOArlette completed high school Financial Status: No concerns. MOB works at [employer], FOArlette is a general internal medicine physician, and also works for a general internal medicine physician. MOB does plan to return to work. Either DENIS's mother or KAROLYN's sister will watch the baby when she returns to work. supplies: They have all needed supplies including clothing, diapers, wipes, car seat, crib, bassinet, bottles, formula. MOB does plan to breast feed. Childcare/Caregivers: DENIS's mother, KAROLYN's sister Transportation: They have multiple vehicles. Programs/Agencies Involved: None Children's Services/Legal Issues: None Behavioral Health Issues: Mental Health: FOB: None reported. DENIS: States has history of depression, was on medication for a short time 3-4 years ago. She tried counseling one time. She did not feel the meds or counseling helped. DENIS states she changed positions at work and her symptoms got much better. She states the position she had been in was causing a lot of stress. Substance Abuse: FOB reports none. DENIS reports history of THC use. She had two positive tox screens, on 07/03/21 and 08/30/21. Tox screen not completed here, baby was negative, meconium pending. DENIS states that the positive in June was before she knew she was . She states once she found out she was , she stopped using. She attributes the positive screen in August to when she used in June. DENIS plans to continue to abstain from marijuana use, does not feel she needs support with this. MOB denies any other substance use. She states she did smoke but quit. FOB states he still does smoke but is trying to cut back. Family/Social Stressors: None reported Support Systems: MOB's mother and father, FOB's father and stepmother, FOB's sister Depression and Anxiety, Shaken Baby, Safe sleeping, Crisis hotline, Help Me Grow, [facility] Resources, List of Counseling Agencies: SW provided information to parents on all of these topics, and reviewed in particular with MOB and FOB warning signs of . SW encouraged MOB to speak w/PCP or OB if she does start having symptoms of , and sometimes they will prescribe a mood enhancer. SW also encouraged her to consider counseling if she does start having symptoms. MOB and FOB both state understanding. SW also spoke w/them about finding providers in network by calling the number on the back of the insurance card. Assessment: FOB and MOB answered all questions. MOB holding baby and appropriate w/baby care while SW in room. SW did call [facility] due to the two positive tox screens. As per [place] [facility], baby can go home w/parents, they will send a letter to let SW know if they screen in the case or not. Plan: Baby home w/FOB and MOB at discharge. Meconium is pending so SW will follow for this. Otherwise, no further social service needs warranted. SW remains available should any additional needs arise. CORNELIO Cruz
== END 2022-02-14 15:20 | disposition home or self-care (01) | DRG 805 ==
LOC: WPOUT 10:41 → WP 10:41
PROVIDERS: Admitting Provider Obstetrics & Gynecology; PCP Family Medicine; Visit Provider Obstetrics & Gynecology
DX: O70.1 Second degree perineal laceration during delivery (principal); Z37.0 Single live birth; U07.1 COVID-19; O99.324 Drug use complicating childbirth; O98.52 Other viral diseases complicating childbirth; F12.90 Cannabis use, unspecified, uncomplicated; Z3A.37 37 weeks gestation of pregnancy
CPT/HCPCS: 59025; 59050; 84112; 85025; 86850; 86900; 86901; 99218; J7120; A4216; G0378; J2405